=== PATIENT | male | born 1970 | race Caucasian/White ===

== ENCOUNTER 2021-08-13 10:35 | Observation (INO) ==
[2021-08-13] MEDS ORDERED: SODIUM CHLORIDE 0.9% 500 ML IV ONE (11:53)
[2021-08-13] MEDS ORDERED: ACETAMINOPHEN 1000 MG/100 ML IV IV STA (11:54)
[2021-08-13] MEDS ORDERED: CYCLOBENZAPRINE HCL 10 MG TAB PO STA (11:56)
[2021-08-13 12:13] LABS: Basophils # (auto) 0.03 K/uL (0-0.2); Basophils % (auto) 0.2 %; Eosinophils # (auto) 0.03 K/uL (0-0.5); Eosinophils % (auto) 0.2 %; Hematocrit (blood only) 42.4 % (42-52); Hemoglobin 15.5 g/dL (14.0-18.0); Immature Granulocytes # (auto) 0.04 K/uL (0.00-0.02); Immature Granulocytes % (auto) 0.3 %; Lymphocytes # (auto) 2.21 K/uL (1.2-3.4); Lymphocytes % (auto) 14.2 %; Mean Corpuscular Hemoglobin 32.6 pg (25-34); Mean Corpuscular Hgb Conc 36.6 g/dL (32-36); Mean Corpuscular Volume 89.1 fL (80-100); Mean Platelet Volume 8.9 fL (7.4-10.4); Monocytes # (auto) 1.16 K/uL (0.11-0.59); Monocytes % (auto) 7.5 %; Neutrophils # (auto) 12.09 K/uL (1.4-6.5); Neutrophils % (auto) 77.6 %; Platelet Count 288 K/uL (130-400); RDW Coefficient of Variation 13.3 % (11.5-14.5); Red Blood Count 4.76 M/uL (4.7-6.1); White Blood Count 15.56 K/uL (4.8-10.8)
--- NOTE | 2021-08-13 12:16 | Emergency Department Note ---
History of Present Illness General Chief complaint: Leg Injury/Pain Time Seen by Provider: 08/13/21 10:59 History of Present Illness Maximum Pain Intensity: 8 51-year-old male [place] inmate who presents to the emergency department with correctional officers with complaint of severe right buttock, lateral thigh and leg pain. He also reports spasms into the back. The patient reports that he kicked a ladder in his sleep approximately 3 weeks ago. Patient has been seen by the medical obwden several times, being treated with muscle relaxers and steroids without relief. The patient reports that he felt a pop in his thigh last week, and has had significantly worsening pain since that time. Patient also reports an indentation over the lateral aspect of the thigh. The patient was seen by Dr. Welch, [facility], who recommended an MRI for further evaluation. The patient reports that he can now no longer tolerate the pain, rating his discomfort a 10 out of 10. The patient reports that it feels like his leg is spasming. He also has noticed some evolving bruising of the thigh, knee and leg region as well. The patient is adamantly refusing any opioids, sedation or other strong medications given prior history of PTSD. Home Medications Medication Instructions Recorded Confirmed Type buspirone 10 mg tablet 10 mg PO BID 08/13/21 08/13/21 History meloxicam 15 mg tablet 15 mg PO DAILY 08/13/21 08/13/21 History mirtazapine 15 mg tablet 7.5 mg PO DAILY 08/13/21 08/13/21 History paroxetine HCl 10 mg tablet 10 mg PO DAILY 08/13/21 08/13/21 History paroxetine mesylate 40 mg tablet 40 mg PO DAILY 08/13/21 08/13/21 History prednisone 5 mg tablets in a dose 5 mg PO DAILY 08/13/21 08/13/21 History pack Allergies Allergy/AdvReac Type Severity Reaction Status Date / Time Penicillins Allergy Unknown Unverified 08/13/21 14:40 Past Med/Surg History Medical History (Updated 08/13/21 @ 16:28 by Mckinley Enriquez) Antisocial personality disorder Cervical spondylosis Condyloma latum in male Herpesviral infection of penis Osteoarthritis of left shoulder Posttraumatic stress disorder Surgical History (Updated 08/13/21 @ 12:11 by Mckinley Enriquez) No significant past surgical history Social History (Updated 08/13/21 @ 12:12 by Mckinley Enriquez) Smoking Status: Never smoker Second Hand Exposure: No; Do You Dip or Chew Tobacco: No; Tobacco Cessation Education Requested by Patient: No Hx Alcohol Use: No Hx Substance Use: No Preferred Language: Trinidadian Communication Ability: Effective Workforce Services Representative Required: No Beliefs That Will Affect Care: None marital status: Single Current Living Situation: Other Current Living Situation Comment: [place] current occupational status: unemployed Other Information That Helps Us Care for You: No Feels Safe at Home: Yes Assistive Devices: None Review of Systems 10 system review was performed and was negative except for pertinent positives and negatives as indicated in history of present illness Physical Exam Vital Signs Vital Signs - 24 hr 08/13/21 10:26 08/13/21 12:26 08/13/21 15:35 Temperature 37.1 C Temperature Source Oral Pulse Rate 104 H Pulse Rate [Right Radial] 88 85 Respiratory Rate 20 20 20 Blood Pressure 104/68 Blood Pressure [Right Arm] 112/66 110/74 Blood Pressure Mean 80 Blood Pressure Mean [Right Arm] 81 86 Blood Pressure Position [Right Arm] Sitting Pulse Oximetry 99 99 93 Oxygen Delivery Method Room Air Room Air Sepsis Recent Fever Within 48 Hours No Sepsis New/Unexplained Change in Mental Status No Sepsis Action Taken by Nursing No Action Required CONSTITUTIONAL: Healthy and well nourished. Alert and oriented X 3. Patient appears in moderately severe discomfort. HEENT: Normocephalic, atraumatic. No scleral icterus or conjunctival injection. NECK: Full active range of motion without discomfort. LYMPHATICS: No cervical chain adenopathy. RESPIRATORY: Clear to auscultation bilaterally with no wheezing, crackles, rhonchi or stridor. CARDIOVASCULAR: Regular rate and rhythm with no murmurs, rubs or gallops. GASTROINTESTINAL: Bowel sounds present in all quadrants. Soft and nontender to palpation. MUSCULOSKELETAL: Examination of the right lower back, hip and right lower extremity does not show any obvious rashes, skin lesions, erythema, significant acute ecchymosis or atrophy. The patient has discomfort to palpation over the entire lateral thigh region. There does not appear to be any diaphoresis of the distal leg. No significant worsening pain with dorsiflexion or plantarflexion of the ankle. Pedal pulses are intact. Patient could not tolerate range of motion of the hip. INTEGUMENTARY: No rash or other significant dermatologic conditions noted. HEMATOLOGIC: No ecchymosis or petechiae. PSYCHIATRIC: Positive affect. NEUROLOGIC: No focal neurologic deficits noted. Right lower extremity is grossly sensory intact. Course Course Patient history and physical exam were performed. Nurses notes were reviewed. Vital signs were reviewed and were normal. As indicated in HPI, the patient was refusing any analgesics. I did review records that accompanied the patient, seeing report from the intermediate indicating that consultation was placed with orthopedics, and that an MRI with and without contrast of the right lower extremity was ordered. Per the patient, that was supposed to happen tomorrow. At this point, I discussed the case with our microwave technician, who reported that they do not order an MRI of the extremity as sites of interest have to be determined for adequate MRI imaging. At this point, I did call and speak with a nurse at [facility], who reports that Dr. Welch was not in the office today. She was able to look at his dictation, again recommending MRI with and without contrast of the right lower extremity. They were going to send a copy of the office notes for my review. I spoke with the dye penetrant testing technician several times, who indicated they typically just order an MRI without contrast for possible rupture. I was eventually able to determine that the order for the MRI was actually placed by the intermediate physician. At this point, an order was placed for an MRI without contrast. At this point, the patient did request some Flexeril for his back. It is noted that the patient was in significant pain with tremors. I did offer to give him some IV Valium which would give more effective relief, plus provide some light sedation as well so that he could tolerate the MRI. He adamantly refused. He was administered IV Tylenol for additional pain relief, and administered Flexeril 10 mg orally. Order for the IV was placed prior to the termination of which MRI orders to enter into the system. Lab work was also preordered, reviewed and showed an elevated white count of over 15,000 with left shift and 4% bands. Sed rate and CRP are normal. 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 Noncontrast MRI of the pelvis and right femur were performed and were normal. Findings were discussed with Dr. Patricio, ED attending physician, as well as our ED pharmacist. It was elected to try lidocaine patches. I did recommend continued treatment with lidocaine patches, and referral back to orthopedics for further reevaluation. I also indicated that a neurology referral may be warranted if orthopedics deems necessary. The patient was frustrated, but thankful that there was no obvious damage to the muscles or tendons in the thigh. The patient was administered IV Toradol at his request prior to discharge, and rated his discomfort a 7 out of 10. At the time of discharge when the nurse was attempting to transfer the patient from his bed to a wheelchair, and the patient tried to put some weight on the leg, the leg collapsed and he fell to the floor. The patient denies any in juries from his fall, but still complains of severe right thigh pain. The nurse also witnessed the deformity of the lateral thigh when the patient was weightbearing. At this point, I rediscussed the case with Dr. Patricio, recommending admission for hospitalist and orthopedic evaluation. I did order a total CPK which was only mildly elevated. The patient continued to refuse any opioid analgesics for his pain. I also ordered a noncontrast MRI of the lumbar spine at the hospitalist's request. MRI was performed, and did not show any acute findings to explain the patient's current situation. Administered Medications Discontinued Medications Acetaminophen (Acetaminophen 1000 Mg/100 Ml Iv) 1,000 mg IV DAILY STA Stop: 08/13/21 11:55 Last Admin: 08/13/21 12:25 Dose: 1,000 mg Documented by: [id number] Cyclobenzaprine HCl (Cyclobenzaprine Hcl 10 Mg Tab) 10 mg PO NOW STA Stop: 08/13/21 11:57 Last Admin: 08/13/21 12:25 Dose: 10 mg Documented by: [id number] Sodium Chloride (Nss) 500 mls @ 999 mls/hr IV .Q31M ONE Stop: 08/13/21 12:23 Last Infusion: 08/13/21 15:12 Dose: 0 mls/hr Documented by: [id number] Admin: 08/13/21 12:25 Dose: 999 mls/hr Documented by: [id number] Ketorolac Tromethamine (Ketorolac 30 Mg/Ml Vial) 30 mg IV NOW STA Stop: 08/13/21 15:07 Last Admin: 08/13/21 15:15 Dose: 30 mg Documented by: [id number] Lidocaine (Lidocaine 5% 1 Patch) 2 patch TD NOW STA Stop: 08/13/21 15:22 Last Admin: 08/13/21 15:46 Dose: 2 patch Documented by: [id number] Ondansetron HCl (Ondansetron Inj 2 Mg/Ml 2 Ml Vial) 4 mg IV NOW STA Stop: 08/13/21 17:03 Last Admin: 08/13/21 17:05 Dose: 4 mg Documented by: [id number] Medical Decision Making Medical Records Attestation: I reviewed the patient's medical records. Home Medications Current Medication List: was personally reviewed by me Laboratory Data Attestation: I reviewed the patient's lab results. Result diagrams: 08/13/21 11:36 08/13/21 11:36 Lab Results 08/13/21 08/13/21 08/13/21 Range/Units 11:36 11:36 11:36 WBC 15.56 H (4.8-10.8) K/uL RBC 4.76 (4.7-6.1) M/uL Hgb 15.5 (14.0-18.0) g/dL Hct 42.4 (42-52) % MCV 89.1 (80-100) fL MCH 32.6 (25-34) pg MCHC 36.6 H (32-36) g/dL RDW Std Deviation 43.0 (36.4-46.3) fL RDW Coeff of Papa 13.3 (11.5-14.5) % Plt Count 288 (130-400) K/uL MPV 8.9 (7.4-10.4) fL Immature Gran % (Auto) 0.3 % Neut % (Auto) 77.6 % Lymph % (Auto) 14.2 % [place] % (Auto) 7.5 % Eos % (Auto) 0.2 % Baso % (Auto) 0.2 % Neut # (Auto) 12.09 H (1.4-6.5) K/uL Lymph # (Auto) 2.21 (1.2-3.4) K/uL [place] # (Auto) 1.16 H (0.11-0.59) K/uL Eos # (Auto) 0.03 (0-0.5) K/uL Baso # (Auto) 0.03 (0-0.2) K/uL Immature Gran # (Auto) 0.04 H (0.00-0.02) K/uL ESR 5 (0-15) mm/hr Sodium 139 (136-145) mmol/L Potassium 3.8 (3.5-5.1) mmol/L Chloride 104 (98-107) mmol/L Carbon Dioxide 26 (21-32) mmol/L Anion Gap 9 (3-11) BUN 25 H (6-23) mg/dl Creatinine 1.16 (0.6-1.4) mg/dl Est Cr Clr Drug Dosing Not Reportable Est GFR ( Amer) 85.2 ml/min Est GFR (Non-Af Amer) 73.5 ml/min BUN/Creatinine Ratio 21.6 H (10-20) Glucose 84 (70-99(Fasting)) mg/dl POC Glucose (70-99) mg/dl Calcium 9.6 (8.5-10.1) mg/dl Total Bilirubin 1.4 H (0.2-1.0) mg/dl AST 29 (13-39) U/L ALT 38 (7-52) U/L Alkaline Phosphatase 87 (34-104) U/L Total Creatine Kinase (30-223) U/L C-Reactive Protein < 0.50 (0-0.5) mg/dl Total Protein 6.9 (6.0-8.3) gm/dl Albumin 4.4 (3.4-5.0) gm/dl Globulin 2.5 (2.5-4.0) gm/dl Albumin/Globulin Ratio 1.8 (0.9-2) 08/13/21 08/13/21 Range/Units 11:36 16:09 WBC (4.8-10.8) K/uL RBC (4.7-6.1) M/uL Hgb (14.0-18.0) g/dL Hct (42-52) % MCV (80-100) fL MCH (25-34) pg MCHC (32-36) g/dL RDW Std Deviation (36.4-46.3) fL RDW Coeff of Papa (11.5-14.5) % Plt Count (130-400) K/uL MPV (7.4-10.4) fL Immature Gran % (Auto) % Neut % (Auto) % Lymph % (Auto) % [place] % (Auto) % Eos % (Auto) % Baso % (Auto) % Neut # (Auto) (1.4-6.5) K/uL Lymph # (Auto) (1.2-3.4) K/uL [place] # (Auto) (0.11-0.59) K/uL Eos # (Auto) (0-0.5) K/uL Baso # (Auto) (0-0.2) K/uL Immature Gran # (Auto) (0.00-0.02) K/uL ESR (0-15) mm/hr Sodium (136-145) mmol/L Potassium (3.5-5.1) mmol/L Chloride (98-107) mmol/L Carbon Dioxide (21-32) mmol/L Anion Gap (3-11) BUN (6-23) mg/dl Creatinine (0.6-1.4) mg/dl Est Cr Clr Drug Dosing Est GFR ( Amer) ml/min Est GFR (Non-Af Amer) ml/min BUN/Creatinine Ratio (10-20) Glucose (70-99(Fasting)) mg/dl POC Glucose 86 (70-99) mg/dl Calcium (8.5-10.1) mg/dl Total Bilirubin (0.2-1.0) mg/dl AST (13-39) U/L ALT (7-52) U/L Alkaline Phosphatase (34-104) U/L Total Creatine Kinase 436 H (30-223) U/L C-Reactive Protein (0-0.5) mg/dl Total Protein (6.0-8.3) gm/dl Albumin (3.4-5.0) gm/dl Globulin (2.5-4.0) gm/dl Albumin/Globulin Ratio (0.9-2) Imaging Data Attestation: I personally reviewed and interpreted this imaging study as follows: My Impression: Noncontrast MRI of the pelvis and right femur did not show any acute findings, as discussed in the following radiologist reports, which were also reviewed. An additional noncontrast MRI of the lumbar spine was ordered, and did not show any significant central canal stenosis, as also discussed with the following radiologist report. Radiologist's Impression: Femur MRI 08/13/21 12:03 MR femur RT wo con CLINICAL HISTORY: Possible R quad/tendon rupture TECHNIQUE: Multisequence, multiplanar MR images of the right femur were obtained without contrast COMPARISON: None available at the time of this dictation. FINDINGS: No evidence of acute fracture. No joint effusion is seen. The soft tissues are unremarkable. In particular, the quadriceps muscles and tendons are unremarkable. IMPRESSION: No evidence of acute abnormality in particular no evidence of tendon rupture. ACT 112: Negative or not required by law. Electronically signed by: Olivier Cline M.D. 08/13/2021 2:58 PM Pelvis MRI 08/13/21 12:03 MR pelvis wo con CLINICAL HISTORY: Possible right quad/tendon rupture. COMPARISON STUDY: No previous studies for comparison. TECHNIQUE: Utilizing 1.5 Nelida magnet and dedicated coil, multiplanar, multiecho imaging of the pelvis was performed without intravenous contrast. FINDINGS: The bladder is mildly distended. No abnormality of the bladder is identified on this unenhanced exam. The sacroiliac joints and symphysis pubis are intact. Suspected mild degenerative changes of both sacroiliac joints are p resent. No marrow edema within the pelvis, hips, sacrum or coccyx is identified. No suspicious marrow replacement is identified. No pelvic hematoma is identified. No abnormality of the musculature within the pelvis or hips is identified. The bilateral hamstrings origins are intact. There is no evidence for avascular necrosis of the femoral heads. No hip joint effusion is present. Trace edema adjacent to the bilateral greater trochanters is present. There is mild disc space narrowing at L5-S1 with disc bulge. IMPRESSION: 1. Unremarkable unenhanced MRI of the pelvis. 2. No acute traumatic findings identified within the pelvis or hips. ACT 112: Negative or not required by law. Electronically signed by: Jose Rehman M.D. 08/13/2021 2:22 PM Orbit X-Ray 08/13/21 12:38 ORBIT RADIOGRAPHS 3 VIEWS HISTORY: pre-MRI screening. COMPARISON: None. FINDINGS: There are no radiopaque foreign bodies identified within the orbits. Incidental note is made of multiple dental amalgams. IMPRESSION: No radiopaque foreign bodies identified within the orbits. ACT 112: Negative or not required by law. Electronically signed by: Jose Rehman M.D. 08/13/2021 1:28 PM Lumbar Spine MRI 08/13/21 16:30 MR lumbar spine wo con CLINICAL HISTORY: 51 years-old Male with Inability to ambulate. Acute low back pain COMPARISON: MRI of the pelvis of same day TECHNIQUE: Multiplanar, multi sequence MRI of the lumbar spine was performed without intravenous contrast. FINDINGS: Urinary bladder distention. No gross abnormality identified on the tab card press operator localizer images. Paraspinal tissues are unremarkable. No acute fracture, subluxation, significant bone marrow or soft tissue edema. No endplate erosions or suspicious bone lesion. The conus medullaris terminates at T12-L1. Signal within the thoracic spinal cord and cauda equina is unremarkable. Study is mildly motion degraded. Moderate intervertebral disc space narrowing with associated spondylitic spurring within the lower thoracic spine. At T11-T12, there is a posterior disc osteophyte complex which causes mild central canal stenosis narrowing the AP dimension of the thecal sac to 9 mm. Mild bilateral neural foraminal narrowing at T10-T11 and mild left foraminal stenosis at T11- T12. Mild multilevel facet arthrosis with ligamentum flavum thickening. T12-L1: Mild intervertebral disc space narrowing with spondylitic spurring. The central canal or neural foraminal stenosis. L1-L2: No central canal or neural foraminal stenosis. L2-L3: No central canal or neural foraminal stenosis. L3-L4: No central canal or neural foraminal stenosis. L4-L5: Mild intervertebral disc space narrowing with spondylitic spurring and small posterior disc osteophyte complex. Ligamentum flavum thickening with mild facet arthrosis. There is flattening of the ventral thecal sac without high- grade central canal stenosis. There is suggestion of a 11 mm disc extrusion within the right lateral recess at the level of the mid L4 vertebral body on image 7 of the sagittal series and image 20 of series 6, suboptimally evaluated secondary to the aforementioned motion artifact. There is a least mild right lateral recess narrowing. Mild left with moderate right neural foraminal stenosis. The central canal is patent. L5-S1: Moderate intervertebral disc space narrowing with spondylitic spurring and posterior annular disc bulge with [id number] facet arthrosis. Flattening of the ventral thecal sac with abutment of the left S1 nerve root. The central canal is patent. Mild to moderate right with moderate left neural foraminal narrowing. IMPRESSION: 1. Motion degraded exam. 2. No acute fracture, subluxation or bone marrow edema. 3. Discogenic degeneration of the lower thoracic and lumbar spine as above. 4. No high-grade central canal canal or foraminal stenosis. ACT 112: Negative or not required by law. The above report was generated using voice recognition software. It may contain grammatical, syntax or spelling errors. Electronically signed by: Donovan Herman M.D. 08/13/2021 7:47 PM Blood Pressure Blood Pressure Findings: Normal blood pressure MDM Narrative Exact etiology for the patient's discomfort is unknown at this time. The patient reports injuring the thigh 3 weeks ago. The patient also had orthopedic evaluation, who also suspected musculotendinous injury. MRI does not show any acute findings. I doubt herpes zoster as the patient has had this discomfort now for 3 weeks. Patient denies any lower back pain, however lumbar radiculitis was also considered. The patient may warrant EMG studies for further evaluation. Patient has a mild leukocytosis that is likely secondary to steroid use. I do not suspect underlying DVT. Patient has no skin changes to suggest cellulitis. Impression & Plan Pain of right lateral upper thigh, Strain of right hip and thigh, Unable to bear weight on right lower extremity Discharge Plan Visit Data Chief Complaint: Leg Injury/Pain ED Provider: Bishnu Patricio ED Midlevel Provider: Mckinley Enriquez Discharge Problem: Pain of right lateral upper thigh, Strain of right hip and thigh, Unable to bear weight on right lower extremity Patient Disposition: Admitted As Inpatient Discharge Instructions Interventions: ED Discharge Assessment Last Done: 08/13/21 17:46 Discharge Problem: Strain of right hip and thigh Qualifiers: Encounter type: initial encounter Qualified Code(s): S76.011A - Strain of muscle, fascia and tendon of right hip, initial encounter
[2021-08-13 12:24] LABS: Alanine Aminotransferase 38 U/L (7-52); Albumin Globulin Ratio 1.8 (0.9-2); Albumin Level 4.4 gm/dl (3.4-5.0); Alkaline Phosphatase 87 U/L (34-104); Anion Gap 9 (3-11); Aspartate Aminotransferase 29 U/L (13-39); BUN Creatinine Ratio 21.6 (10-20); Bilirubin,Total 1.4 mg/dl (0.2-1.0); Blood Urea Nitrogen 25 mg/dl (6-23); C Reactive Protein < 0.50 mg/dl (0-0.5); Calcium 9.6 mg/dl (8.5-10.1); Carbon Dioxide 26 mmol/L (21-32); Chloride 104 mmol/L (98-107); Est GFR (African American) 85.2 ml/min; Est GFR (Non-African American) 73.5 ml/min; Globulin 2.5 gm/dl (2.5-4.0); Glucose 84 mg/dl (70-99(Fasting)); Potassium 3.8 mmol/L (3.5-5.1); Sodium 139 mmol/L (136-145); Total Protein 6.9 gm/dl (6.0-8.3)
--- NOTE | 2021-08-13 13:30 | XRay Report ---
ORBIT RADIOGRAPHS 3 VIEWS HISTORY: pre-MRI screening. COMPARISON: None. FINDINGS: There are no radiopaque foreign bodies identified within the orbits. Incidental note is mad e of multiple dental amalgams. IMPRESSION: No radiopaque foreign bodies identified within the orbits. ACT 112: Negative or not required by law. Electronically signed by: Jose Rehman M.D. 08/13/2021 1:28 PM
--- NOTE | 2021-08-13 14:23 | Magnetic Resonance Report ---
MR pelvis wo con CLINICAL HISTORY: Possible right quad/tendon rupture. COMPARISON STUDY: No previous studies for comparison. TECHNIQUE: Utilizing 1.5 Nelida magnet and dedicated coil, multiplanar, multiecho imaging of the pelvi s was performed without intravenous contrast. FINDINGS: The bladder is mildly distended. No abnormality of the bladder is identified on this unenha nced exam. The sacroiliac joints and symphysis pubis are intact. Suspected mild degenerative changes of both sacroiliac joints are present. No marrow edema within the pelvis, hips, sacrum or coccyx is i dentified. No suspicious marrow replacement is identified. No pelvic hematoma is identified. No abnor mality of the musculature within the pelvis or hips is identified. The bilateral hamstrings origins a re intact. There is no evidence for avascular necrosis of the femoral heads. No hip joint effusion is present. Trace edema adjacent to the bilateral greater trochanters is present. There is mild disc sp rafaela narrowing at L5-S1 with disc bulge. IMPRESSION: 1. Unremarkable unenhanced MRI of the pelvis. 2. No acute traumatic findings identified within the pelvis or hips. ACT 112: Negative or not required by law. Electronically signed by: Jose Rehman M.D. 08/13/2021 2:22 PM
--- NOTE | 2021-08-13 14:59 | Magnetic Resonance Report ---
MR femur RT wo con CLINICAL HISTORY: Possible R quad/tendon rupture TECHNIQUE: Multisequence, multiplanar MR images of the right femur were obtained without contrast COMPARISON: None available at the time of this dictation. FINDINGS: No evidence of acute fracture. No joint effusion is seen. The soft tissues are unremarkable. In parti cular, the quadriceps muscles and tendons are unremarkable. IMPRESSION: No evidence of acute abnormality in particular no evidence of tendon rupture. ACT 112: Negative or not required by law. Electronically signed by: Olivier Cline M.D. 08/13/2021 2:58 PM
[2021-08-13] MEDS ORDERED: KETOROLAC 30 MG/ML VIAL IV STA (15:06)
[2021-08-13] MEDS ORDERED: LIDOCAINE 5% 1 PATCH TD STA (15:21)
--- NOTE | 2021-08-13 16:25 | History & Physical Report ---
Date of Service August 13, 2021 Assessment & Plan (1) Pain of right lateral upper thigh: Plan: - Ongoing and worsening since hitting right hernandez on bun bed latter 3 weeks ago, despite muscle relaxant and steroid use. Current etiology is unclear, MRI of pelvis/hip/femur is unrevealing. WBC 15.56, suspect d/t steroid use, no other indications for infection. CPK 436, otherwise labs wnl, ESR and CRP wnl. - Has received Tylenol 1g, Flexeril 10 mg, Ketorolac 30 mg IV, lidocaine patch in ED, pain mildly reduced. Patient refusing benzodiazepines or opioids for pain relief. - Will continue with lidocaine patches, Toradol 10 mg Q6h for pain relief. - IVF 80 cc/hr for mildly elevated CPK. - Lumbar MRI ordered, pending. - Orthopedics consulted, appreciate their recommendations. (2) Posttraumatic stress disorder: Plan: - Resume buspirone, mirtazapine, and paroxetine. Plan: -Admit to [facility]. -SCDs, Lovenox for DVT ppx. -Full Code. History of Present Illness Chief Complaint: severe right thigh pain Primary Care Provider: [facility] Patient is a 51-year-old male with past medical history of PTSD who presents today from who presents from [facility] with severe right anterolateral thigh pain. The patient reports that he kicked his [place] bed ladder in his sleep approximately 3 weeks ago with his right hernandez and since then has had severe right thigh pain. Describes the pain as spasms that have been worsening since the injury. He has been [facility] the [facility] with muscle relaxers and steroids, he states steroids had helped somewhat until they were tapered and then the pain came back. His pain is a 10/10. The patient was seen by Dr. Welch, [facility], who recommended an MRI for further evaluation sit to be performed tomorrow. This was obtained in the ED and was unremarkable, did not show evidence of acute fracture of the pelvis, hips, or right femur, no joint effusion, soft tissues are unremarkable, quadriceps muscles and tendons are unremarkable. Patient was going to be discharged, however upon standing to transfer to wheelchair, his right leg gave out on him, nurse at bedside witnessed lateral deformity to the thigh. Denies LOC during this event, no recent fever/chills, chest pain, SOB, palpitations, diaphoresis, abdominal pain, nausea, vomiting, urinary or bowel incontinence diarrhea/constipation. Allergies Allergy/AdvReac Type Severity Reaction Status Date / Time Penicillins Allergy Unknown Unverified 08/13/21 14:40 Home Medications Medication Instructions Recorded Confirmed Type buspirone 10 mg tablet 10 mg PO BID 08/13/21 08/13/21 History meloxicam 15 mg tablet 15 mg PO DAILY 08/13/21 08/13/21 History mirtazapine 15 mg tablet 7.5 mg PO DAILY 08/13/21 08/13/21 History paroxetine HCl 10 mg tablet 10 mg PO DAILY 08/13/21 08/13/21 History paroxetine mesylate 40 mg tablet 40 mg PO DAILY 08/13/21 08/13/21 History prednisone 5 mg tablets in a dose 5 mg PO DAILY 08/13/21 08/13/21 History pack Past Med/Surg History Medical History (Updated 08/13/21 @ 16:28 by Mckinley Enriquez) Antisocial personality disorder Cervical spondylosis Condyloma latum in male Herpesviral infection of penis Osteoarthritis of left shoulder Posttraumatic stress disorder Surgical History (Updated 08/13/21 @ 12:11 by Mckinley Enriquez) No significant past surgical history Social History (Updated 08/13/21 @ 12:12 by Mckinley Enriquez) Smoking Status: Never smoker Second Hand Exposure: No; Do You Dip or Chew Tobacco: No; Tobacco Cessation Education Requested by Patient: No Hx Alcohol Use: No Hx Substance Use: No Preferred Language: Belarusian Communication Ability: Effective 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 Beliefs That Will Affect Care: None marital status: Single Current Living Situation: Other Current Living Situation Comment: [facility] current occupational status: unemployed Other Information That Helps Us Care for You: No Feels Safe at Home: Yes Assistive Devices: None Review of Systems Review of Systems: Constitutional: No fever, sweats or chills Eyes: No diplopia, no worsening or blurred vision ENT: normal hearing, no trouble swallowing Respiratory: No cough, sputum, dyspnea at rest or on exertion Cardiovascular: No chest pain, tightness or palpitations Abdomen: One episodes of vomiting today; No pain, diarrhea or constipation Musculoskeletal: right anterolateral thigh spasms, burising along anterior hernandez; no swelling, hip/knee pain, other joint pain Neurologic: No weakness, numbness/tingling, or balance problems Psychiatric: No anxiety or depression Skin: No rash or itch Physical Exam Physical Exam: General: awake, alert, patient visibly in pain Head: Normocephalic, atraumatic ENT: PERRL, EOMI, no pharyngeal exudate, mucous membranes moist Chest: Clear to auscultation, on room air, no adventitious breath sounds Cardiac: Regular rate and rhythm, no murmur, no JVD, normal peripheral pulses, good capillary refill Abdominal: NABS x 4 quadrants, soft, nontender to palpation, no rebound, guarding or tenderness Extremities: right hip internally rotated, with full aROM but with worsening of pain/spasms; lidocaine patch applied to anterior thigh; muscle spasms observed in right lateral thigh; some bruising noted on anterior hernandez consistent with where patient states he hit his leg on ladder Psych: Normal mood and affect Neuro: AAO x 3, strength intact bilaterally and rated 5/5, no motor deficits, speech is clear, no peripheral sensory deficits Skin: no rash or erythema Results & Data Results & Data ([facility]) Vital Signs (Past 12 Hours) Vital Signs Temp Pulse Pulse Resp BP BP Pulse Ox 08/13/21 15:35 85 20 110/74 93 08/13/21 12:26 88 20 112/66 99 08/13/21 10:26 37.1 C 104 H 20 104/68 99 Laboratory Results Abnormal lab results 08/13/21 08/13/21 08/13/21 Range/Units 11:36 11:36 11:36 WBC 15.56 H (4.8-10.8) K/uL MCHC 36.6 H (32-36) g/dL Neut # (Auto) 12.09 H (1.4-6.5) K/uL Elbert # (Auto) 1.16 H (0.11-0.59) K/uL Immature Gran # (Auto) 0.04 H (0.00-0.02) K/uL BUN 25 H (6-23) mg/dl BUN/Creatinine Ratio 21.6 H (10-20) Total Bilirubin 1.4 H (0.2-1.0) mg/dl Total Creatine Kinase 436 H (30-223) U/L Diagnostic Findings Femur MRI 08/13/21 12:03 MR femur RT wo con CLINICAL HISTORY: Possible R quad/tendon rupture TECHNIQUE: Multisequence, multiplanar MR images of the right femur were obtained without contrast COMPARISON: None available at the time of this dictation. FINDINGS: No evidence of acute fracture. No joint effusion is seen. The soft tissues are unremarkable. In particular, the quadriceps muscles and tendons are unremarkable. IMPRESSION: No evidence of acute abnormality in particular no evidence of tendon rupture. ACT 112: Negative or not required by law. Electronically signed by: Olivier Cline M.D. 08/13/2021 2:58 PM Pelvis MRI 08/13/21 12:03 MR pelvis wo con CLINICAL HISTORY: Possible right quad/tendon rupture. COMPARISON STUDY: No previous studies for comparison. TECHNIQUE: Utilizing 1.5 Nelida magnet and dedicated coil, multiplanar, multiecho imaging of the pelvis was performed without intravenous contrast. FINDINGS: The bladder is mildly distended. No abnormality of the bladder is identified on this unenhanced exam. The sacroiliac joints and symphysis pubis are intact. Suspected mild degenerative changes of both sacroiliac joints are present. No marrow edema within the pelvis, hips, sacrum or coccyx is identified. No suspicious marrow replacement is identified. No pelvic hematoma is identified. No abnormality of the musculature within the pelvis or hips is identified. The bilateral hamstrings origins are intact. There is no evidence for avascular necrosis of the femoral heads. No hip joint effusion is present. Trace edema adjacent to the bilateral greater trochanters is present. There is mild disc space narrowing at L5-S1 with disc bulge. IMPRESSION: 1. Unremarkable unenhanced MRI of the pelvis. 2. No acute traumatic findings identified within the pelvis or hips. ACT 112: Negative or not required by law. Electronically signed by: Jose Rehman M.D. 08/13/2021 2:22 PM Orbit X-Ray 08/13/21 12:38 ORBIT RADIOGRAPHS 3 VIEWS HISTORY: pre-MRI screening. COMPARISON: None. FINDINGS: There are no radiopaque foreign bodies identified within the orbits. Incidental note is made of multiple dental amalgams. IMPRESSION: No radiopaque foreign bodies identified within the orbits. Code Status & VTE Plan Code Status Full Code Supervising Physician Co-Signing Physician Notes Patient seen and examined, chart reviewed, case discussed with Yoselin Davila and I agree with the assessment and plan as above except as otherwise noted Labs and images reviewed Patient is a 51-year-old inmate who has a history of night terrors and PTSD reportedly has history of kicking out in his sleep and has hit a fixed ladder in his sleep, last 3 weeks ago and has been seen by the [facility] multiple times for right buttock, lateral thigh, and leg pain with back spasms. Patient reported a pop in this thigh last week with worsening pain since. Does have a indentation right lateral thigh deformity. Was seen by Dr. Cuellar [facility] and was pending an MRI, however due to worsening intolerable pain patient was referred to the ER for further evaluation. Right lateral extremity pain Leukocytosis to 15.56, suspect due to steroid effect Creatinine normal at baseline, admitting creatinine 1.16 Trace elevation of creatinine kinase, 436 CRP negative MRI femur/pelvis, no evidence of acute abnormality, no evidence of tendon rupture, unremarkable quadriceps. Pelvis and bilateral hip atraumatic and without acute findings. No hematomas identified. Hamstrings are intact bilaterally, and no evidence of avascular necrosis. Given severe pain with normal MRI as above, lumbar spine MRI ordered, no acute lumbar pathology No signs of myositis on MRI, CK is mildly elevated at 436, trended. With negative imaging ?nerve compression/strike injury/neuropraxia with spasm? Pain control with lidocaine, Toradol 10 mg every 6 hours as needed Patient prefers to avoid narcotic analgesia - Cyclobenzaprine with minimal improvement Night terrors/PTSD Continue buspirone Continue mirtazapine Continue paroxetine PG Care Time/CCT Total # of Minutes Spent Total Time Spent with Patient: Total time spent is greater than 50% in coordination of care (as documented) at patient's floor/unit and/or counseling patient: Coding Level of Care Code INT OBSERVATION CARE 52M LVL 2 Diagnoses Pain of right lateral upper thigh M79.651 Posttraumatic stress disorder F43.10
[2021-08-13] MEDS ORDERED: ONDANSETRON INJ 2 MG/ML 2 ML VIAL IV STA (17:02)
[2021-08-13] MEDS ORDERED: ONDANSETRON INJ 2 MG/ML 2 ML VIAL IV PRN (18:19)
[2021-08-13] MEDS ORDERED: POLYETHYLENE (MIRALAX) 17 GM PACK PO PRN (18:19)
[2021-08-13] MEDS ORDERED: KETOROLAC TROMETHAMINE 15 MG/ML VIAL IV PRN (19:34)
--- NOTE | 2021-08-13 19:49 | Magnetic Resonance Report ---
MR lumbar spine wo con CLINICAL HISTORY: 51 years-old Male with Inability to ambulate. Acute low back pain COMPARISON: MRI of the pelvis of same day TECHNIQUE: Multiplanar, multi sequence MRI of the lumbar spine was performed without intravenous cont rast. FINDINGS: Urinary bladder distention. No gross abnormality identified on the crankshaft grinder localizer images. Paraspinal tissues are unremarkable. No acute fracture, subluxation, significant bone marrow or soft tissue nica ma. No endplate erosions or suspicious bone lesion. The conus medullaris terminates at T12-L1. Signal within the thoracic spinal cord and cauda equina is unremarkable. Study is mildly motion degraded. M oderate intervertebral disc space narrowing with associated spondylitic spurring within the lower tho racic spine. At T11-T12, there is a posterior disc osteophyte complex which causes mild central canal stenosis narrowing the AP dimension of the thecal sac to 9 mm. Mild bilateral neural foraminal narro wing at T10-T11 and mild left foraminal stenosis at T11-T12. Mild multilevel facet arthrosis with lig amentum flavum thickening. T12-L1: Mild intervertebral disc space narrowing with spondylitic spurring. The central canal or nash ral foraminal stenosis. L1-L2: No central canal or neural foraminal stenosis. L2-L3: No central canal or neural foraminal stenosis. L3-L4: No central canal or neural foraminal stenosis. L4-L5: Mild intervertebral disc space narrowing with spondylitic spurring and small posterior disc o steophyte complex. Ligamentum flavum thickening with mild facet arthrosis. There is flattening of the ventral thecal sac without high-grade central canal stenosis. There is suggestion of a 11 mm disc ex trusion within the right lateral recess at the level of the mid L4 vertebral body on image 7 of the s agittal series and image 20 of series 6, suboptimally evaluated secondary to the aforementioned motio n artifact. There is a least mild right lateral recess narrowing. Mild left with moderate right neura l foraminal stenosis. The central canal is patent. L5-S1: Moderate intervertebral disc space narrowing with spondylitic spurring and posterior annular disc bulge with [id number] facet arthrosis. Flattening of the ventral thecal sac with abutment of the left S1 nerve root. The central canal is patent. Mild to moderate right with moderate left nash ral foraminal narrowing. IMPRESSION: 1. Motion degraded exam. 2. No acute fracture, subluxation or bone marrow edema. 3. Discogenic degeneration of the lower thoracic and lumbar spine as above. 4. No high-grade central canal canal or foraminal stenosis. ACT 112: Negative or not required by law. The above report was generated using voice recognition software. It may contain grammatical, syntax o r spelling errors. Electronically signed by: Donovan Herman M.D. 08/13/2021 7:47 PM
[2021-08-13] MEDS: busPIRone 5 MG TAB PO SCH (21:26)
[2021-08-13] MEDS: SODIUM CHLORIDE 0.9% 1000ML 1,000 ML IV SCH (21:28)
[2021-08-14 07:29] LABS: Basophils # (auto) 0.04 K/uL (0-0.2); Basophils % (auto) 0.6 %; Eosinophils # (auto) 0.14 K/uL (0-0.5); Eosinophils % (auto) 2.2 %; Hematocrit (blood only) 40.7 % (42-52); Hemoglobin 14.4 g/dL (14.0-18.0); Immature Granulocytes # (auto) 0.02 K/uL (0.00-0.02); Immature Granulocytes % (auto) 0.3 %; Lymphocytes # (auto) 1.92 K/uL (1.2-3.4); Lymphocytes % (auto) 30.4 %; Mean Corpuscular Hemoglobin 31.9 pg (25-34); Mean Corpuscular Hgb Conc 35.4 g/dL (32-36); Mean Corpuscular Volume 90.2 fL (80-100); Mean Platelet Volume 8.9 fL (7.4-10.4); Monocytes # (auto) 0.76 K/uL (0.11-0.59); Neutrophils # (auto) 3.43 K/uL (1.4-6.5); Neutrophils % (auto) 54.5 %; Platelet Count 254 K/uL (130-400); RDW Coefficient of Variation 13.7 % (11.5-14.5); RDW Standard Deviation 44.9 fL (36.4-46.3); Red Blood Count 4.51 M/uL (4.7-6.1); White Blood Count 6.31 K/uL (4.8-10.8)
[2021-08-14 08:01] LABS: BUN Creatinine Ratio 24.5 (10-20); Calcium 8.8 mg/dl (8.5-10.1); Creatinine Clr Calc Pharmacy 108.6 ml/min; Est GFR (African American) 99.6 ml/min; Est GFR (Non-African American) 85.9 ml/min; Potassium 4.1 mmol/L (3.5-5.1)
[2021-08-14] MEDS: busPIRone 5 MG TAB PO SCH ×2 (08:56→23:58)
[2021-08-14] MEDS: PARoxetine HCL 10 MG TAB PO SCH (08:56)
[2021-08-14] MEDS: PARoxetine HCL 20 MG TAB PO SCH (08:57)
[2021-08-14] MEDS ORDERED: MIRTAZAPINE TAB 15 MG TAB PO SCH ×2 (09:00→21:00)
[2021-08-14] MEDS ORDERED: MELOXICAM 7.5 MG TAB PO SCH (09:00)
[2021-08-14] MEDS: ACETAMINOPHEN 325 MG TAB PO PRN ×2 (09:02→17:36)
[2021-08-14] MEDS: SODIUM CHLORIDE 0.9% 1000ML 1,000 ML IV SCH ×2 (09:02→23:54)
[2021-08-14] MEDS ORDERED: TAMSULOSIN HCL 0.4 MG CAP PO STA (10:51)
[2021-08-14] MEDS: LIDOCAINE 5% 1 PATCH TD SCH (11:12)
--- NOTE | 2021-08-14 11:35 | Orthopedic Consultation ---
Date of Consultation August 14, 2021 Assessment & Plan (1) Pain of right lateral upper thigh: Patient was evaluated in his room 354. Conservative care measures were discussed. I did review his studies with him. I am not sure what is generating pain of the level he is experiencing. Possibility of muscle fascia rupture or muscle strain, was discussed with him. He was reassured that I find no evidence for fracture, tendon rupture, significant muscle avulsion, notable edema, or disc pathology. Patient may require musculoskeletal ultrasound as an outpatient to see if there is truly a split in the IT band or fascia under contraction. While this has been ongoing for over 4 weeks, the pop he experienced was just 9 days ago. Regardless, there is no evidence for edema on his MRI imaging. His pain seems to be out of proportion to today's physical exam findings. I did discuss this with the hospitalist. Patient does not wish to take any narcotic medication. Alternative such as tramadol, Toradol, or Celebrex may be tried. He would benefit from physical therapy. He was encouraged to keep his leg moving. He may also benefit from compression with an Brad wrap. Care plan will be discussed with Dr. Calvillo. Currently, I find nothing that would require surgical intervention for the right thigh/leg. Present on Admission?: Yes Supervising Physician Co-Signing Physician Notes I, Dr. Calvillo, saw and examined the patient and discussed the management with my PA. I reviewed my PAs note and agree with the documented findings and the plan of care I developed. In addition the patient noted that he has had urinary retention for the past 2 days. On physical examine there was no palpable defect in the the right thigh. Patient did demonstrate fasciculations while sasha his thigh muscles. With straight leg raise spasms worsen in the right thigh. Contacted primary service reviewed my findings, MRI lumbar spine results and concern for quada equina syndrome and recommend consult spine service. I, Dr. Calvillo, spent 25 minutes reviewing the chart, reading the imaging, evaluating the patient, discussing care plan with the patient, primary service, and PA. My PA spent [] minutes reviewing the chart, evaluating the patient and documentation. History of Present Illness Reason for Consultation: Right thigh pain Requesting Physician: Chris Calvillo MD Attending Physician: Colin Crooks MD History of Present Illness This 51-year-old male is seen today in his room. Guards are in attendance. Patient states that he has had right thigh pain since July 11. At that time he accidentally kicked the ladder to his bunk bed while thrashing around in bed. Patient states he has PTSD and frequently has restless sleep. He was seen at the [facility] for ensuing thigh and leg pain. He states the pain has been persistent. It begins on the lateral aspect of his thigh and wraps anteriorly towards the knee. He was treated using muscle relaxers and steroids, and states that it was helping some. He states while being assisted back from the [facility] on August 04, he felt a pop in his thigh and had an increase in his pain. Pain is persisted. He was seen by Dr. Cuellar as an outpatient, and MRI was recommended. Patient states the pain became intolerable and he was sent to the ED yesterday. MRI imaging of the femur, pelvis, and lumbar spine were completed yesterday. He denies any numbness or tingling. Patient states that he gets severe spasms in the thigh, that generate severe pain. He states he does not take narcotics, and has been just "dealing with the pain". Upon my arrival, the guards state that he just had a series of muscle spasms that caused him to have a syncopal episode while laying in bed. Patient denies any history of epilepsy. Guards do not think it was a seizure. He reportedly was holding his breath to deal with the pain, and passed out. Allergies Allergy/AdvReac Type Severity Reaction Status Date / Time Penicillins Allergy Unknown Unverified 08/13/21 14:40 Home Medications Medication Instructions Recorded Confirmed Type buspirone 10 mg tablet 10 mg PO BID 08/13/21 08/13/21 History meloxicam 15 mg tablet 15 mg PO DAILY 08/13/21 08/13/21 History mirtazapine 15 mg tablet 7.5 mg PO DAILY 08/13/21 08/13/21 History paroxetine HCl 10 mg tablet 10 mg PO DAILY 08/13/21 08/13/21 History paroxetine mesylate 40 mg tablet 40 mg PO DAILY 08/13/21 08/13/21 History prednisone 5 mg tablets in a dose 5 mg PO DAILY 08/13/21 08/13/21 History pack Patient History Medical History Antisocial personality disorder Cervical spondylosis Condyloma latum in male Herpesviral infection of penis Osteoarthritis of left shoulder Posttraumatic stress disorder Surgical History No significant past surgical history Social History Smoking Status: Never smoker Second Hand Exposure: No; Do You Dip or Chew Tobacco: No; Tobacco Cessation Education Requested by Patient: No Hx Alcohol Use: No Hx Substance Use: No Preferred Language: Ethiopian Communication Ability: Effective Test Administrator Required: No Beliefs That Will Affect Care: None marital status: Single Current Living Situation: Other [facility] current occupational status: unemployed Other Information That Helps Us Care for You: No Feels Safe at Home: Yes Assistive Devices: None Review of Systems Review of Systems: All systems reviewed & are unremarkable except as noted in HPI & below Physical Exam Physical Exam: General: Well-developed, well-nourished, middle-aged white m obed, in obvious discomfort. No acute distress. Laying on the bed. Alert and oriented. Well muscled individual. Upon initial presentation, he is conversing and apologizing for profuse sweating. He is shaking his lower extremities. Thighs are quivering. Skin: Warm and moist with good turgor. He appears to have some edema present in the right quadricep that is it looks mildly larger. Small ecchymotic area that is resolving on the VMO, as well as on his right anterior hernandez. No open wounds. No signs of infection. Musculoskeletal: Lower extremity evaluation reveals a slight asymmetry in quad girth by visual inspection. Right is slightly bigger. Is quads are actively quivering, right greater than left. He is able to sit both quads and perform straight leg raise. He states this requires severe effort on the right. He is able to extend his legs at the knees, when sitting up and dangling over the side. There is no palpable defect in the quadriceps tendon or patellar tendon. No intra-articular effusion in either knee. He describes pain with palpation over the right thigh laterally along the IT band. This wraps anteriorly and then towards the medial knee across the distal quad. There is no palpable defect in the hip flexor tendon. He has no palpable defect within the quadriceps muscle belly. Patient is insistent that the defect in his quad is much greater and more noticeable when he is standing. He does require the assistance of both guards to help him from the bed and help him to stand. He appears to want to put minimal weight on either leg. When encouraged to stand on his left leg, he is able to do so but still relies on the assistance of the guards. He does appear to have a deeper recess on the right thigh in between the IT band and his vastus lateralis, when compared to the left. It is noticeable but not severe. When quads are resting, there is no appreciable defect or malady. Patient was placed side-lying and he is able to AB duct with both legs. Sulcus prominence is not as impressive side-lying. Supple motion of both his hip and his knee passively. Stable collateral ligaments at the right knee. Neurologic: Gross sensation is intact across the lower extremities by soft touch. Peripheral pulses are 2+. Results & Data ([facility]) Vital Signs (Past 12 Hours) Vital Signs Temp Pulse Resp BP Pulse Ox 08/14/21 07:24 36.8 C 83 18 123/78 100 08/13/21 23:45 36.6 C 85 20 128/74 98 Laboratory Results 08/14/21 08/14/21 Range/Units 06:44 06:44 WBC 6.31 (4.8-10.8) K/uL RBC 4.51 L (4.7-6.1) M/uL Hgb 14.4 (14.0-18.0) g/dL Hct 40.7 L (42-52) % MCV 90.2 (80-100) fL MCH 31.9 (25-34) pg MCHC 35.4 (32-36) g/dL RDW Std Deviation 44.9 (36.4-46.3) fL RDW Coeff of Papa 13.7 (11.5-14.5) % Plt Count 254 (130-400) K/uL MPV 8.9 (7.4-10.4) fL Immature Gran % (Auto) 0.3 % Neut % (Auto) 54.5 % Lymph % (Auto) 30.4 % [place] % (Auto) 12.0 % Eos % (Auto) 2.2 % Baso % (Auto) 0.6 % Neut # (Auto) 3.43 (1.4-6.5) K/uL Lymph # (Auto) 1.92 (1.2-3.4) K/uL [place] # (Auto) 0.76 H (0.11-0.59) K/uL Eos # (Auto) 0.14 (0-0.5) K/uL Baso # (Auto) 0.04 (0-0.2) K/uL Immature Gran # (Auto) 0.02 (0.00-0.02) K/uL Sodium 138 (136-145) mmol/L Potassium 4.1 (3.5-5.1) mmol/L Chloride 108 H (98-107) mmol/L Carbon Dioxide 24 (21-32) mmol/L Anion Gap 6 (3-11) BUN 25 H (6-23) mg/dl Creatinine 1.02 (0.6-1.4) mg/dl Est Cr Clr Drug Dosing 108.6 ml/min Est GFR ( Amer) 99.6 ml/min Est GFR (Non-Af Amer) 85.9 ml/min BUN/Creatinine Ratio 24.5 H (10-20) Glucose 89 (70-99(Fasting)) mg/dl Calcium 8.8 (8.5-10.1) mg/dl Total Creatine Kinase 576 H (30-223) U/L Diagnostic Findings MRI imaging of the lumbar spine was reviewed. He has mild disc space narrowing at L4-L5 and a small posterior disc osteophyte complex. No significant central canal stenosis. There is a suggestion of a 11 mm disc extrusion within the right lateral recess at L4. It is suboptimally visualized secondary to motion artifact. Moderate right neural foraminal stenosis at this level. There is also moderate disc space narrowing with spondylitic spurring and posterior annular disc bulge with mild to moderate facet arthrosis at L5-S1. There is flattening of the thecal sac with abutment of the left S1 nerve root. Pelvis MRI is unremarkable. No acute traumatic findings. Femur MRI also obtained yesterday was reviewed. No evidence of acute abnormality. There is no edema within the tissue. No evidence for avulsed tendon or ruptured muscle belly. No bony abnormalities are noted. No joint effusions.
--- NOTE | 2021-08-14 14:42 | Hospitalist Progress Note ---
Date of Service August 14, 2021 Assessment & Plan (1) Pain of right lateral upper thigh: Plan: Right lateral upper thigh pain Patient with pain since 07/11/2021 when he kicked out a ladder in his sleep Did have a Pop with acute worsening of pain approximately 9 days ago for which he was seen as outpatient Pain is in the distribution of the IT band MRI of the pelvis, lumbar spine, right femur reviewed and reviewed with orthopedics. No abnormalities, no evidence of muscle rupture, myositis, inflammation. Of note a IT band rupture may not be appreciated on MRI, could have dynamic ultrasound but this would be performed as outpatient Given no neurogenic involvement, no muscle rupture/indication for surgical intervention recommend acute pain control, potential for outpatient follow-up with ultrasound Due to patient's history refuses all narcotics, tramadol, and benzodiazepines. Maximize nonnarcotic analgesia including Tylenol, Voltaren, Mobic as outpatient (currently on Toradol as inpatient), topical lidocaine, baclofen, and PT with routine stretching - Mag 4g IV for spasm Follow serially, will likely require ongoing management. - CK trended. NO signs of myositis (2) Urinary retention: Plan: Patient with 1 L of urine in the bladder, felt like he needed to void but unable to void at bedside in the morning. Discussed potential for post renal kidney injury, especially while on fluids for slightly elevated CK Patient with PTSD and severe anxiety disorder, socially challenging to perform straight cath. Discussed risk of kidney injury, attempted to again avoid to avoid cath but discussed with patient how to go about cath if needed to avoid injury. He declines and cannot take benzodiazepines or narcotic medications for anxiety. Patient reports he has self cathed once in the distant past, would prefer this over having medical staff do this if possible. Given his history this is reasonable, ultimately patient was ambulated and was able to void and did not require catheterization Given severe retention and potential for post renal injury and inadequate pain control will continue to follow overnight, repeat BMP in the morning, bladder scan every shift Plan: DVT prophylaxis: SCDs Diet: Regular, Disposition: Medical/surgical, following for night for inadequate pain control and for potential obstructive kidney injury CODE STATUS: Full code Admission and Anticipated Discharge Date Admission Date: August 13, 2021 Subjective Seen at bedside. Continues to have 10/10 pain with spasms in right thigh. Resting in slightly flexed position. No fever, chills, sweats. Has been trying to pee today, has not been able to void. No backslash flank pain. No nausea/vomiting. Has had episodes of near blacking out from anxiety and waking up disoriented, patient reports he has extreme PTSD. No chest pain, chest pressure, shortness of breath at time of visit. Review of Systems Review of Systems: All systems reviewed & are unremarkable except as noted in Subjective Physical Exam Physical Exam: General: A&Ox3. NAD. Cooperative. HEENT: Atraumatic, normocephalic. Pulm: CTAB A&P. -wheezes, -rales, -rhonchi. Symmetrical chest rise. No increase in work of breathing. No respiratory distress. Cardiac: RRR, -mrg. Radial pulses intact and symmetrical. Abdominal: Nontender, nondistended, soft. BS present. Extremities: Right lower extremity with lateral divot increased compared to left, sensation of soft touch intact in hands and feet without deficit or asymmetry. Ankle dorsiflexion/plantarflexion intact bilaterally without asymmetry. Patient does have pain in the hip worsened with abduction. Right hip flexion is intact. Shaking and pain present from above the lateral right knee up to the hip. No swelling, effusion, erythema, discharge. Results & Data Results & Data ([facility]) Vital Signs (Past 12 Hours) Vital Signs Temp Pulse Resp BP Pulse Ox 08/14/21 07:24 36.8 C 83 18 123/78 100 PG Care Time/CCT Total # of Minutes Spent Total Time Spent with Patient: Total time spent is greater than 50% in coordination of care (as documented) at patient's floor/unit and/or counseling patient: Coding Level of Care Code 77490 Subseq Hosp Care Lvl 2 Diagnoses Pain of right lateral upper thigh M79.651 Urinary retention R33.9
[2021-08-14] MEDS: MAGNESIUM SULFATE / D5W 1 GM/100 ML BAG IV SCH ×4 (15:25→21:36)
[2021-08-14] MEDS ORDERED: BACLOFEN 10 MG TAB PO PRN (16:29)
[2021-08-14] MEDS: DICLOFENAC SOD 1% GEL 100 GM TUBE EXT SCH ×2 (17:41→21:36)
[2021-08-15] MEDS: DICLOFENAC SOD 1% GEL 100 GM TUBE EXT SCH ×2 (03:00→09:23)
--- NOTE | 2021-08-15 07:14 | Hospitalist Progress Note ---
Date of Service August 15, 2021 Assessment & Plan (1) Pain of right lateral upper thigh: Plan: Right lateral upper thigh pain 2/2 L4 radiculopathy +/- MSK strain Patient with pain since 07/11/2021 when he kicked out a ladder in his sleep Did have a Pop with acute worsening of pain approximately 9 days ago for which he was seen as outpatient - Reviewed case with Ortho Spine/Dr. Klein due to urinary retention and Lumbar MRI (withL4-L5: Mild intervertebral disc space narrowing with spondylitic spurring and small posterior disc osteophyte complex. Ligamentum flavum thickening with mild facet arthrosis. There is flattening of the ventral thecal sac without high-grade central canal stenosis. There is suggestion of a 11 mm disc extrusion within the right lateral recess at the level of the mid L4 vertebral body on image 7 of the sagittal series and image 20 of series 6, suboptimally evaluated secondary to the aforementioned motion artifact. There is a least mild right lateral recess narrowing. Mild left with moderate right neural foraminal stenosis. The central canal is patent.). - Given unilateral findings, lack of saddle anesthesia, and with imaging above unlikely to be cauda equina although suspect that disc extrusion contributing to the spasm and pain. Of note pain is also been going on for 9 days, patient was able to void voluntarily while standing today suspect acute urinary retention 2/2 acute setting of pain. Recommended to see pain management in the morning, unfortunately Dr. Kleni is out of town at this time and is unable to see the patient in person in the morning but may consider laminectomy in the future if unable to achieve adequate pain control via MM + pain management. MRI of the pelvis, lumbar spine, right femur reviewed and reviewed with orthopedics. No abnormalities, no evidence of muscle rupture, myositis, inflammation. Of note a IT band rupture may not be appreciated on MRI, could have dynamic ultrasound but this would be performed as outpatient Given no neurogenic involvement, no muscle rupture/indication for surgical intervention recommend acute pain control, potential for outpatient follow-up with ultrasound Due to patient's history refuses all narcotics, tramadol, and benzodiazepines. Maximize nonnarcotic analgesia including Tylenol, Voltaren, Mobic as outpatient (currently on Toradol as inpatient), topical lidocaine, baclofen, and PT with routine stretching Pain is in the distribution of the IT band/lateral quad - Mag 4g IV for spasm. On bedside recheck in evening 08/15 pain/spasm had greatly improved following this 'this is the best I've felt in weeks.' Follow serially, will likely require ongoing management. - CK trended. NO signs of myositis (2) Urinary retention: Plan: - Improved Patient with 1 L of urine in the bladder, difficulty voiding 08/14 - Was able to void after standing Discussed potential for post renal kidney injury, especially while on fluids for slightly elevated CK Patient with PTSD and severe anxiety disorder, socially challenging to perform straight cath. Discussed risk of kidney injury, attempted to again avoid to avoid cath but discussed with patient how to go about cath if needed to avoid injury. He declines and cannot take benzodiazepines or narcotic medications for anxiety. Patient reports he has self cathed once in the distant past, would prefer this over having medical staff do this if needed (3) Posttraumatic stress disorder: Plan: - Severe PTSD longstanding history - Continue remeron HS - Continue buspar 10mg PO BID- Continue paroxetine 50 daily Plan: DVT prophylaxis: SCDs Diet: Regular, Disposition: Medical/surgical, following for night for inadequate pain control and for potential obstructive kidney injury CODE STATUS: Full code Admission and Anticipated Discharge Date Admission Date: August 13, 2021 Results & Data Results & Data ([facility]) Vital Signs (Past 12 Hours) Vital Signs Temp Pulse Resp BP Pulse Ox 08/14/21 22:19 36.6 C 81 18 124/82 94 PG Care Time/CCT Total # of Minutes Spent Total Time Spent with Patient: Total time spent is greater than 50% in coordination of care (as documented) at patient's floor/unit and/or counseling patient: Coding Diagnoses Pain of right lateral upper thigh M79.651 Urinary retention R33.9 Posttraumatic stress disorder F43.10
[2021-08-15 07:40] LABS: Basophils # (auto) 0.04 K/uL (0-0.2); Basophils % (auto) 0.6 %; Eosinophils # (auto) 0.22 K/uL (0-0.5); Eosinophils % (auto) 3.4 %; Hematocrit (blood only) 41.3 % (42-52); Hemoglobin 14.6 g/dL (14.0-18.0); Immature Granulocytes # (auto) 0.01 K/uL (0.00-0.02); Immature Granulocytes % (auto) 0.2 %; Lymphocytes % (auto) 32.2 %; Mean Corpuscular Hemoglobin 32.3 pg (25-34); Mean Corpuscular Hgb Conc 35.4 g/dL (32-36); Mean Corpuscular Volume 91.4 fL (80-100); Mean Platelet Volume 9.1 fL (7.4-10.4); Monocytes # (auto) 0.81 K/uL (0.11-0.59); Monocytes % (auto) 12.4 %; Neutrophils # (auto) 3.34 K/uL (1.4-6.5); Neutrophils % (auto) 51.2 %; Platelet Count 247 K/uL (130-400); RDW Coefficient of Variation 13.5 % (11.5-14.5); RDW Standard Deviation 44.8 fL (36.4-46.3); Red Blood Count 4.52 M/uL (4.7-6.1); White Blood Count 6.52 K/uL (4.8-10.8)
[2021-08-15 08:02] LABS: Albumin Globulin Ratio 1.7 (0.9-2); BUN Creatinine Ratio 17.9 (10-20); Calcium 8.6 mg/dl (8.5-10.1); Creatinine Clr Calc Pharmacy 104.5 ml/min; Globulin 2.4 gm/dl (2.5-4.0); Potassium 3.7 mmol/L (3.5-5.1); Total Protein 6.4 gm/dl (6.0-8.3)
[2021-08-15] MEDS: PARoxetine HCL 10 MG TAB PO SCH (09:29)
--- NOTE | 2021-08-15 09:41 | Pain Management Consultation ---
Date of Consultation August 15, 2021 Assessment & Plan (1) Urinary retention: (2) Pain of right lateral upper thigh: (3) Lumbar disc herniation: * Right leg cramping and weakness may be attributed to the findings of the right L4-5 disc extrusion. He will be scheduled for a right L4-5 transforaminal epidural steroid injection on an outpatient basis. This will be coordinated with Marissa. * Recommend physical therapy to help regain the right leg weakness. * Continue regimen including Lidocaine patch, Voltaren gel, Tylenol, Toradol, and Baclofen PRN. History of Present Illness Attending Physician: Colin Crooks MD History of Present Illness This is a 51 year old prisoner that has been admitted for right leg pain and weakness. He describes severe intermittent muscle spasm of the right quadriceps muscles and now persistent right leg weakness. Orthopedic evaluation was unremarkable. Patient did receive Magnesium 1 gram x 4 yesterday and states that the spasms of the right hamstring has resolved since that time. No pain. His current complaint if weakness of the right leg. He is having difficulty ambulating to the bathroom as he needs to hold onto the IV pole to give him support. No back pain. He is having some issues with urinary retention. No bowel/bladder incontinence, saddle anesthesia, foot drop, or falls. Case discussed with Dr. Annie Narayanan Allergies Allergy/AdvReac Type Severity Reaction Status Date / Time Penicillins Allergy Unknown Unverified 08/13/21 14:40 Home Medications Medication Instructions Recorded Confirmed Type buspirone 10 mg tablet 10 mg PO BID 08/13/21 08/13/21 History meloxicam 15 mg tablet 15 mg PO DAILY 08/13/21 08/13/21 History mirtazapine 15 mg tablet 7.5 mg PO DAILY 08/13/21 08/13/21 History paroxetine HCl 10 mg tablet 10 mg PO DAILY 08/13/21 08/13/21 History paroxetine mesylate 40 mg tablet 40 mg PO DAILY 08/13/21 08/13/21 History prednisone 5 mg tablets in a dose 5 mg PO DAILY 08/13/21 08/13/21 History pack Patient History Medical History Antisocial personality disorder Cervical spondylosis Condyloma latum in male Herpesviral infection of penis Osteoarthritis of left shoulder Posttraumatic stress disorder Surgical History No significant past surgical history Social History Smoking Status: Never smoker Second Hand Exposure: No; Hx Alcohol Use: No Hx Substance Use: No Preferred Language: Lithuanian Communication Ability: Effective Manager Implementation Required: No Beliefs That Will Affect Care: None marital status: Single Current Living Situation: Other Current Living Situation Comment: [facility] current occupational status: unemployed Feels Safe at Home: Yes Assistive Devices: None Physical Exam Physical Exam: GENERAL: This is a 51 year old male. Appears in good physical shape. Accompanied by guards. HEAD/FACE: Normocephalic and atraumatic. EYES: No drainage or conjunctival injection. ENT: Nose without bleeding or discharge. Oral mucosa moist. NECK: Full ROM without apparent pain. No swelling or masses noted. RESPIRATORY: Patient with unlabored breathing. No signs of respiratory distress. CHEST/AXILLA: Chest movement symmetrical. No deformities noted. ABDOMEN/GI: No distension BACK: Moves without difficulty. No tenderness to palpation. No muscle spasm noted. SKIN: [place], warm and dry. No rash noted. MS/EXTREMITY: Positive straight leg raise on the right, negative on the left. R Hip flexion +3; hip extension +4; knee extension +5; knee flexion +5; dorsiflexion +5; plantar flexion +5 L Hip flexion +5; hip extension +5; knee extension +5; knee flexion +5; dorsiflexion +5; plantar flexion +5 NEURO: Awake, alert, and oriented x 3. Distal sensation of lower legs intact and equal bilaterally. NEURO: Alert and appears oriented. Speech is fluent. Cranial Nerves are grossly intact. PSYCH: Alert, pleasant, affect is calm
[2021-08-15] MEDS ORDERED: bisacodyL 5 MG TABEC PO ONE (09:42)
[2021-08-15] MEDS ORDERED: bisacodyL 5 MG TABEC PO PRN (09:42)
--- NOTE | 2021-08-15 12:28 | Electrocardiogram Report ---
Test Reason : Blood Pressure : / mmHG Vent. Rate : 098 BPM Atrial Rate : 098 BPM P-R Int : 134 ms QRS Dur : 090 ms QT Int : 342 ms P-R-T Axes : 065 004 051 degrees QTc Int : 436 ms Poor data quality, interpretation may be adversely affected Normal sinus rhythm Normal ECG No previous ECGs available Confirmed by Ori Torres ([id number]) on 08/15/2021 12:28:26 PM Referred By: [facility] Confirmed By:Ori Torres
[2021-08-15] MEDS: busPIRone 5 MG TAB PO SCH (12:41)
[2021-08-15] MEDS: PARoxetine HCL 20 MG TAB PO SCH (12:42)
[2021-08-15] MEDS: SODIUM CHLORIDE 0.9% 1000ML 1,000 ML IV SCH (12:45)
[2021-08-15] MEDS: LIDOCAINE 5% 1 PATCH TD SCH (12:47)
--- NOTE | 2021-08-15 13:11 | Discharge Summary ---
Date of Service August 15, 2021 Admission HPI Per Admitting Provider Patient is a 51-year-old male with past medical history of PTSD who presents today from who presents from [facility] with severe right anterolateral thigh pain. The patient reports that he kicked his bunk bed ladder in his sleep approximately 3 weeks ago with his right hernandez and since then has had severe right thigh pain. Describes the pain as spasms that have been worsening since the injury. He has been treated at the correctional facility with muscle relaxers and steroids, he states steroids had helped somewhat until they were tapered and then the pain came back. His pain is a 10/10. The patient was seen by Dr. Welch, [facility], who recommended an MRI for further evaluation sit to be performed tomorrow. This was obtained in the ED and was unremarkable, did not show evidence of acute fracture of the pelvis, hips, or right femur, no joint effusion, soft tissues are unremarkable, quadriceps muscles and tendons are unremarkable. Patient was going to be discharged, however upon standing to transfer to wheelchair, his right leg gave out on him, nurse at bedside witnessed lateral deformity to the thigh. Denies LOC during this event, no recent fever/chills, chest pain, SOB, palpitations, diaphoresis, abdominal pain, nausea, vomiting, urinary or bowel incontinence diarrhea/constipation. Principal Diagnosis L4 radiculopathy Discharge Exam General: A&Ox3. NAD. Cooperative. Appears improved from prior HEENT: Atraumatic, normocephalic. Pupils equal and reactive, vision and hearing grossly intact Pulm: CTAB A&P. -wheezes, -rales, -rhonchi. Symmetrical chest rise. No increase in work of breathing. No respiratory distress. Cardiac: RRR, -mrg. Radial pulses intact and symmetrical. Abdominal: Nontender, nondistended, soft. BS present. Extremities: All 4 extremities intact. Patient with slightly flexed position of right lower extremity, no tremors today, hip flexion/extension, knee flexion/extension intact actively 4+/5 strength. No visible spasm of right lower extremity today. No saddle anesthesia. Strength intact and symmetrical, elbow flexion intact and symmetrical. Left lower extremity intact with full strength to hip flexion, knee flexion/extension, ankle dorsiflexion/plantar flexion. PT pulse intact bilaterally. Sensation to soft touch intact in feet bilaterally. Discharge Data Allergies Allergy/AdvReac Type Severity Reaction Status Date / Time Penicillins Allergy Unknown Unverified 08/13/21 14:40 Consultations 08/13/21 16:25 ED Decision to Admit Stat 08/13/21 18:19 Consult Orthopedic Surgery Routine 08/14/21 18:26 Consult Pain Management Routine Ordered Studies 08/13/21 12:03 MR femur RT wo con Stat MR pelvis wo con Stat 08/13/21 16:30 MR lumbar spine wo con Stat Hospital Course (1) Pain of right lateral upper thigh: Right lower extremity pain, likely due to L4-L5 radiculopathy. Normal right femur MRI. Lumbar MRI with disc extrusion as noted below. There was some concern initially for cauda equina initially due to urinary retention, this was discussed with orthospine and patient had unilateral findings without saddle anesthesia or other red flags, and urinary retention improved with pain control. In addition symptoms have been going on for 4 weeks and acutely worsened for 8 days. To do as outpatient: 1. Continue pain management with baclofen, Tylenol, Mobic, lidocaine topical, Voltaren topical 2. Follow-up with pain management, patient is being scheduled for an epidural steroid injection as outpatient 3. Continued reassessment, follow closely for urinary retention. This was present during admission but improved with pain control. 4. Case was discussed with Dr. Klein, if patient does not improve with above measures may refer for laminectomy evaluation 5. CK was mildly elevated to 4500, downtrending at time of discharge. May trend as outpatient 6. Activity modification as needed. May ambulate as tolerated, avoid weighted/excess strain of back. Do not recommend complete bedrest Right lateral upper thigh pain 2/2 L4 radiculopathy +/- MSK strain Patient with pain since 07/11/2021 when he kicked out a ladder in his sleep Did have a Pop with acute worsening of pain approximately 9 days ago for which he was seen as outpatient - Reviewed case with Ortho Spine/Dr. Klein due to urinary retention and Lumbar MRI (withL4-L5: Mild intervertebral disc space narrowing with spondylitic spurring and small posterior disc osteophyte complex. Ligamentum flavum thickening with mild facet arthrosis. There is flattening of the ventral thecal sac without high-grade central canal stenosis. There is suggestion of a 11 mm disc extrusion within the right lateral recess at the level of the mid L4 vertebral body on image 7 of the sagittal series and image 20 of series 6, suboptimally evaluated secondary to the aforementioned motion artifact. There is a least mild right lateral recess narrowing. Mild left with moderate right neural foraminal stenosis. The central canal is patent.). - Given unilateral findings, lack of saddle anesthesia, and with imaging above unlikely to be cauda equina although suspect that disc extrusion contributing to the spasm and pain. Of note pain is also been going on for 9 days, patient was able to void voluntarily while standing today suspect acute urinary retention 2/2 acute setting of pain. Recommended to see pain management in the morning, unfortunately Dr. Klein is out of town at this time and is unable to see the patient in person in the morning but may consider laminectomy in the future if unable to achieve adequate pain control via MM + pain management. MRI of the pelvis, lumbar spine, right femur reviewed and reviewed with orthopedics. No abnormalities, no evidence of muscle rupture, myositis, inflammation. Of note a IT band rupture may not be appreciated on MRI, could have dynamic ultrasound but this would be performed as outpatient Given no neurogenic involvement, no muscle rupture/indication for surgical intervention recommend acute pain control, potential for outpatient follow-up with ultrasound Due to patient's history refuses all narcotics, tramadol, and benzodiazepines. Maximize nonnarcotic analgesia including Tylenol, Voltaren, Mobic as outpatient (currently on Toradol as inpatient), topical lidocaine, baclofen, and PT with routine stretching Pain is in the distribution of the IT band/lateral quad. Was seen by Ortho and initially thought could have also had IT band rupture, which could have follow- up with dynamic ultrasound in office however will defer this to radiculopathy treatment and eval above. - Mag 4g IV for spasm. On bedside recheck in evening 08/15 pain/spasm had greatly improved following this 'this is the best I've felt in weeks.' - CK trended. Downtrending at discharge (2) Urinary retention: - Improved Patient with 1 L of urine in the bladder, difficulty voiding 08/14 - Was able to void after standing Discussed potential for post renal kidney injury, especially while on fluids for slightly elevated CK Patient with PTSD and severe anxiety disorder, socially challenging to perform straight cath. Discussed risk of kidney injury, attempted to again avoid to avoid cath but discussed with patient how to go about cath if needed to avoid injury. He declines and cannot take benzodiazepines or narcotic medications for anxiety. Patient reports he has self cathed once in the distant past, would prefer this over having medical staff do this if needed Continue to follow closely as outpatient, if signs of CAD to develop seek prompt reevaluation (3) Posttraumatic stress disorder: - Severe PTSD longstanding history - Continue remeron HS - Continue buspar 10mg PO BID- Continue paroxetine 50 daily Total Time Total Time Spent Total Time Spent (In Minutes): Time spend day of discharge 65 minutes including direct patient care, documentation, review of labs and images, and coordination of care. Discharge Plan Discharge Items [facility] Reason For Visit: RIGHT LEG INJURY Discharge Diagnosis: Right leg pain, L4 radiculopathy Activity: Resume your previous activity Non-emergency contact: Primary Care Provider and Specialist Call non-emergency contact if: you have any medication questions and your s ymptoms worsen Follow-up/Referrals: Marissa NERI [Primary Care Provider] - Diet: Regular Addtl Attending Provider Instructions: He was seen in the hospital for severe right leg pain and spasm. An MRI of your lower extremity was normal. An MRI of your lumbar spine did show 11 mm disc extrusion within the right lateral recess at the level of the mid L4 vertebral body which can cause leg pain called radiculopathy. Your pain did improve following a magnesium infusion, antispasmodics, and anti-inflammatory treatment. You experienced urinary retention ring an episode of severe pain, this improved the same day and you are able to void successfully. Your case was discussed with the spinal surgeon due to concern for cauda equina syndrome, this was felt to be very unlikely to be present at your time of presentation. You are seen by pain management who are arranging outpatient follow-up and potential epidural steroid injection for pain control. You are being discharged to the facility physician, to continue pain control with Tylenol, baclofen, and meloxicam. If you develop a severe/worsening pain especially numbness of the groin/saddle region, increasing pain, inability to pee, incontinence, or other new concerning symptoms please seek prompt medical reevaluation. You did experience some urinary retention during admission, but were able to void successfully following ambulation. If you do not pee for a day, or experience difficulty urinating/urinary symptoms please seek prompt evaluation by the [facility]. You may ambulate as tolerated. Please avoid high intensity exercises/lifting while your symptoms are improving. Complete bedrest is not indicated, and you may walk/ambulate as able based on or limited by your pain. If you have suddenly changing symptoms please be reevaluated by the facility physician. A follow-up appointment is being scheduled with Dr. Narayanan, anesthesia/pain control. If you do not hear regarding confirmation of an appointment, please contact her office through the switchboard at [phone]. If your symptoms do not improve with the above, please discuss followup referral to Dr. Klein [facility] with your primary care provider. If you develop any new or worsening symptoms including fever, chills, sweats, chest pain, chest pressure, difficulty breathing, uncontrolled nausea/vomiting, rash, wheezing, passing out or nearly passing out, bleeding, black/bloody bowel movements, or other new or concerning symptoms please call your primary care physician, or call 911 for re-evaluation in the emergency department if you are very concerned. Pending Studies at Discharge: No Skilled Items Patient informed of condition?: Yes DNR: No Discharge Level of Care: Other Communicable Disease: No Discharge Prognosis: Stable Lines: None Urinary Catheter: No Medications and DC Order Prescriptions: New baclofen 10 mg Tablet 5 mg PO TID PRN (Reason: pain/s) Qty: 60 RF: 0 acetaminophen 325 mg Tablet 650 mg PO Q4H PRN (Reason: pain) Qty: 60 RF: 0 polyethylene glycol 3350 [Miralax] 17 gram Powder In Packet 17 g PO DAILY Qty: 10 RF: 0 lidocaine 5 % Adhesive Patch,Medicated 1 patch transdermal QAM Qty: 10 RF: 0 diclofenac sodium [Voltaren Arthritis Pain] 1 % Gel 4 g EXT Q6H Qty: 100 RF: 0 Continued paroxetine HCl 10 mg Tablet 10 mg PO DAILY RF: 0 meloxicam 15 mg Tablet 15 mg PO DAILY RF: 0 buspirone 10 mg Tablet 10 mg PO BID RF: 0 mirtazapine 15 mg Tablet 7.5 mg PO DAILY RF: 0 paroxetine mesylate 40 mg Tablet 40 mg PO DAILY RF: 0 Discontinued prednisone 5 mg Tablets,Dose Pack 5 mg PO DAILY RF: 0 Admission Data Admit Date/Time: 08/13/21 16:35 Attending Provider: Colin Crooks Admit Provider: Colin Crooks Primary Care Provider: Marissa NERI Other Providers: Dave Calvillo ; Renny Barclay ; Jony Reyes ; Verito Abreu ; Annie Avila ; Jayy Willis ; Mook Yang ; Colin Colón ; Colin Swanson ; Alejandra Ashton ; Amee Barajas ; Vera Alcantara ; Valerie Hdez ; Tori Cruz ; Colin Crooks ; Annie Narayanan Coding Level of Care Code D/C DAY MANAGEMENT >30 MINS Diagnoses Pain of right lateral upper thigh M79.651 Urinary retention R33.9 Posttraumatic stress disorder F43.10
[2021-08-16] MEDS ORDERED: POLYETHYLENE (MIRALAX) 17 GM PACK PO SCH (09:00)
== END 2021-08-15 15:30 ==
LOC: ED 10:35 → 3W 10:35